=== PATIENT | female | born 1950 | race Caucasian/White ===

== ENCOUNTER 2021-02-03 11:35 | Outpatient (CLI) | payer MEDICARE, SELFPAY ==
--- NOTE | ~2021-02-03 | DEXA_ITS ---
Bone Density Report Name: Billie Dhillon Age: 70 Sex: Female Ethnicity: White Date of : 1950 Indication: postmenopausal; cancer; Referring Provider: Laverne, Rachel Study: Bone densitometry was performed. Exam Date: February 03, 2021 Accession number: [id number] Bone Density: Region BMD T-score Z-score Classification AP Spine (L1-L4) 1.009 -0.3 1.7 Normal Femoral Neck (Left) 0.752 -0.9 0.9 Normal Total Hip (Left) 0.920 -0.2 1.3 Normal Total Hip Bilateral Avg 0.924 -0.2 1.3 Normal Femoral Neck (Right) 0.808 -0.4 1.4 Normal Total Hip (Right) 0.926 -0.1 1.3 Normal World Health Organization criteria for BMD impression classify patients as: Normal (T-score at or above -1.0), Osteopenia (T-score between -1.0 and -2.5), or Osteoporosis (T-score at or below -2.5). 10-year Fracture Risk: FRAX not reported because: All T-scores for Spine Total, Hip Total, Femoral Neck at or above -1.0 Clinical Information Provided by Patient: Has the following medical conditions: Cancer, ovaries removed Patient maximum height was 67 Menopause Age: 54 No regular weight bearing exercise Onset of menses at age 14 Number of children 2 Impression: The patient has normal bone mass. Discussion: BONE DENSITY IS ABOVE THE MINIMUM DESIRABLE LEVEL AT ALL SKELETAL SITES TESTED. This patient?s bone mineral density is above the minimum desirable level (T-score -1.0 or better) at all sites measured. The patient should follow a healthful lifestyle (good nutrition with adequate calcium and vitamin D, and appropriate weight-bearing exercise). Follow-Up: Consider repeating this study in 5 years or sooner if there is some new clinical indication. Reported by: MAKAYLA on 02/03/2021 12:31:00 PM. Reviewed, dictated and finalized at location ALibby HERNÁNDEZ
== END 2021-02-03 11:36 | disposition home or self-care (01) ==
LOC: ANHIMG 11:38
PROVIDERS: PCP Registered Nurse; Visit Provider Registered Nurse
DX: Z78.0 Asymptomatic menopausal state (principal)
CPT/HCPCS: 77080

== ENCOUNTER 2024-04-24 15:57 | Outpatient (CLI) | payer MEDICARE, SELFPAY ==
--- NOTE | ~2024-04-24 | CT_ITS ---
EXAMINATION: CT abdomen pelvis wo con DATE: 04/24/2024 16:12 INDICATION: Hematuria. TECHNIQUE: Computed tomography (CT) of the abdomen and pelvis was performed without intravenous contr ast. Automated exposure control and iterative reconstruction technique were employed. The dose-length product was 495.95 mGy-cm. COMPARISON: CT abdomen and pelvis 10/09/2018 FINDINGS: The visualized portions of the lung bases demonstrate mild atelectasis. No pleural effusion . The heart size is normal. There are coronary artery calcifications. There is a small pericardial ef fusion. The liver demonstrates mild intrahepatic biliary duct dilatation, likely secondary to cholecy stectomy. There is pneumobilia, likely secondary to sphincterotomy. There is gas in the pancreatic du ct, which is normal in size. The spleen and adrenal glands are normal. There are cysts in the kidneys measuring up to 9.0 cm on the right. There is no urolithiasis. There is an ostomy on the right with peristomal hernia. There is calcified atherosclerosis of the aorta and many of the other arteries. 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 There are no pathologically enlarged lymph nod es. There is no free intraperitoneal fluid. There is severe thoracic spondylosis and mild lumbar spon dylosis. There are changes of ventral hernia repair. IMPRESSION: 1. No etiology for hematuria. 2. 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 Reviewed, dictated and finalized at location A. [facility] [employer] DIRECT[employer]
== END 2024-04-24 15:58 | disposition home or self-care (01) ==
LOC: MICIMG 15:58
PROVIDERS: PCP Registered Nurse; Visit Provider Nurse Practitioner Family
DX: R31.9 Hematuria, unspecified (principal); R80.9 Proteinuria, unspecified; M54.50 Low back pain, unspecified; R30.0 Dysuria; R39.15 Urgency of urination; I71.43 Infrarenal abdominal aortic aneurysm, without rupture
CPT/HCPCS: 74176